=== PATIENT | male | born 1980 ===

== ENCOUNTER 2019-03-21 19:08 | Emergency (ER) | payer SELFPAY ==
[2019-03-21 19:19] VITALS: BP 139/86; PULSE 76; RESP 18; TEMP 98.3; O2SAT 98; BMI 25.7
--- NOTE | 2019-03-21 19:56 | ED PDOC ---
Arrival/HPI - General Chief Complaint: ENT Problem Time Seen by Provider: 03/21/19 19:33 Historian: Patient - History of Present Illness Narrative History of Present Illness (Text): 03/21/19 19:48 38 y/o male, no significant pmh, nkda, c/o throat pain s/p possibly swallow a chicken bone 2 days ago. Aching pain, no difficulty eating or drinking, no night sweat no rash, no dizziness, no drooling, speaking in clear sentences, f eels like the throat is scratch, no dizziness, no other medical or psychological complaints. Past Medical History - Provider Review Nursing Documentation Reviewed: Yes - Infectious Disease Hx of Infectious Diseases: None - Psychiatric Hx Substance Use: No - Anesthesia Hx Anesthesia: No Family/Social History - Physician Review Nursing Documentation Reviewed: Yes Family/Social History: Unknown Family HX Smoking Status: Never Smoked Hx Alcohol Use: No Hx Substance Use: No Allergies/Home Meds Allergies/Adverse Reactions: Allergies No Known Allergies Allergy (Verified 03/21/19 19:18) Review of Systems - Review of Systems Constitutional: absent: Fatigue, Fevers Eyes: absent: Vision Changes ENT: Sore Throat. absent: Hearing Changes Respiratory: absent: SOB, Cough Cardiovascular: absent: Chest Pain Gastrointestinal: absent: Abdominal Pain, Nausea, Vomiting Skin: absent: Rash, Pruritis Neurological: absent: Headache, Dizziness Psychiatric: absent: Anxiety, Depression, Suicidal Ideation Physical Exam Vital Signs Reviewed: Yes Vital Signs Temp Pulse Resp BP Pulse Ox 03/21/19 19:18 98.3 F 76 18 139/86 98 Temperature: Afebrile Blood Pressure: Normal Pulse: Regular Respiratory Rate: Normal Appearance: Positive for: Well-Appearing, Non-Toxic, Comfortable Pain Distress: Mild Mental Status: Positive for: Alert and Oriented X 3 - Systems Exam Head: Present: Atraumatic, Normocephalic Pupils: Present: PERRL Extroacular Muscles: Present: EOMI Conjunctiva: Present: Normal Mouth: Present: Moist Mucous Membranes, Normal Lips, Normal Tounge, Normal Teeth, Other (no visible foreign bodies). No: Dry, Drooling, Trismus Pharnyx: No: ERYTHEMA, EXUDATE, TONSILS ENLARGED, Peritonsilar Swelling, Uvular Deviation, Muffled/Hoarse Voice, Strider, Soft Palate/Uvular Edema Nose (External): Present: Atraumatic. No: Abrasion, Contusion, Laceration, Lesions, Other Nose (Internal): Present: Normal Inspection, No Active Bleeding. No: Rhinorrhea, Septal Hematoma, Epistaxis Neck: Present: Normal Range of Motion, Trachea Midline. No: Meningeal Signs, MIDLINE TENDERNESS, Paraspinal Tenderness, Lymphadenopathy Respiratory/Chest: Present: Clear to Auscultation, Good Air Exchange. No: Respiratory Distress, Accessory Muscle Use, Wheezes, Decreased Breath Sounds, Rales, Retracting, Rhonchi, Tachypneic, Tender to Palpation Cardiovascular: Present: Regular Rate and Rhythm, Normal S1, S2. No: Murmurs Abdomen: No: Tenderness, Distention, Peritoneal Signs Back: Present: Normal Inspection Upper Extremity: Present: Normal Inspection. No: Cyanosis, Edema Lower Extremity: Present: Normal Inspection. No: Edema Neurological: Present: GCS=15, CN II-XII Intact, Speech Normal Skin: Present: Warm, Dry, Normal Color. No: Rashes Psychiatric: Present: Alert, Oriented x 3, Normal Insight, Normal Concentration Medical Decision Making ED Course and Treatment: 03/21/19 20:15 -CT soft tissue neck 03/21/19 21:22 -CT Soft tissue neck: IMPRESSION: No evidence of foreign body. -Interpretor [id number], tajik was use to interpret. All tests results explained, he feels well with no difficulty swallowing solid or fluid but admits discomfort when swallowing food bolus, CT soft tissue neck and I performed glidescope which both confirmed there is no foreign body or any signs of airway obstruction, likely this is abrasion/scratches. Pt. advised to see the ENT and GI in 2 days for further evaluation and advised to return to the ER if there is complication or problem with follow up. Case discussed with Dr. Larson, she agreed on the plan of care and dispo plan. -Discharge home with motrin, soft food diet, avoid crispy or fried food, follow up with your own pmd and GI/ENT within 2 days, return to the ER for any new or worsening signs or symptoms. - RAD Interpretation Radiology Orders: EXAM: CT Neck without Intravenous Contrast. CLINICAL HISTORY: FOERIGN BODY SWALLOED CHICKEN BONE TECHNIQUE: Axial computed tomography images of the neck without intravenous contrast. Sagittal and coronal reformatted images were generated. 468.00 mGy-cm CONTRAST: Without COMPARISON: None provided. FINDINGS: PHARYNX: Unremarkable appearance of the nasopharynx, oropharyx, and hypopharynx. No pharyngeal mucosal based mass lesions. No radiopaque foreign bodies identified. LARYNX: Normal appearance of the larynx. Unremarkable epiglottis. RETROPHARYNGEAL SPACE: The retropharyngeal soft tissues appear within normal limits. SALIVARY GLANDS: No salivary gland abnormality evident. Unremarkable appearance of the parotid, submandibular, and sublingual glands. LYMPH NODES: No significant lymphadenopathy. THYROID: Unremarkable appearance of the thyroid. No thyroid nodule seen. BONES: No acute osseous abnormality. No aggressive appearing osseous lesion. IMPRESSION: No evidence of foreign body. Electronically signed on March 21, 2019 9:06:32 PM EDT by: Andrew Gandhi M.D., M.B.A., Certified By [employer] Trained MRI and CT Specialist Lead Material Handler: Radiologist - PA / AGRICULTURAL EXTENSION AGENT / Resident Statement / has reviewed & agrees with the documentation as recorded. Disposition/Present on Arrival - Present on Arrival Any Indicators Present on Arrival: No History of DVT/PE: No History of Uncontrolled Diabetes: No Urinary Catheter: No History of Decub. Ulcer: No History Surgical Site Infection Following: None - Disposition Have Diagnosis and Disposition been Completed?: Yes Diagnosis: Throat pain Disposition: HOME/ ROUTINE Disposition Time: 20:15 Patient Plan: Discharge Condition: IMPROVED Additional Instructions: Discharge home with motrin, soft food diet, avoid crispy or fried food, follow up with your own pmd and GI/ENT within 2 days, return to the ER for any new or worsening signs or symptoms. Prescriptions: Ibuprofen [Motrin] 600 mg PO QID PRN #30 tab PRN Reason: Other Referrals: PCP,NO [Primary Care Provider] - Follow up with primary Wilfredo Abdul DO [Staff Provider] - Follow up with primary Gokul Monet MD [Staff Provider] - Follow up with primary Forms: TSB (K[place]akh), WORK NOTE
--- NOTE | 2019-03-22 08:44 | CT ---
Date of service: 03/21/2019 PROCEDURE: CT NECK WITHOUT CONTRAST HISTORY: swallow chicken bone 2 days ago COMPARISON: None available. TECHNIQUE: CT of the neck without intravenous contrast. Coronal and sagittal reformats generated. Radiation dose: Total exam DLP = 468.15 mGy-cm. This CT exam was performed using one or more of the following dose reduction techniques: Automated exposure control, adjustment of the mA and/or kV according to patient size, and/or use of iterative reconstruction technique. FINDINGS: NASOPHARYNX: Unremarkable. SUPRAHYOID NECK: Unremarkable oropharynx, oral cavity, parapharyngeal space and retropharyngeal space. INFRAHYOID NECK: Unremarkable larynx, hypopharynx, and supraglottic space. Vocal cords intact. MASS: None. GLANDS: Parotid and submandibular glands unremarkable. Normal size thyroid gland, without nodule. LYMPH NODES: Mildly enlarged cervical chain lymph nodes, likely reactive. CERVICAL SPINE: No fracture or focal lesion. Within normal limits for the patient's age. OTHER FINDINGS: There is no evidence for radiopaque foreign body. IMPRESSION: No evidence for radiopaque foreign body. No acute findings. A preliminary report was provided by [employer].
== END 2019-03-21 21:46 | disposition home or self-care (01) ==
LOC: ED 19:08
DX: R07.0 Pain in throat (principal)